=== PATIENT | male | born 1970 | race Caucasian/White ===

== ENCOUNTER 2022-07-23 14:23 | Outpatient (CLI) | payer BC, SELFPAY ==
[2022-07-23 22:21] LABS: Albumin* 4.1 g/dL (3.3-5.0)
[2022-07-23 22:22] LABS: Chloride* 105 mmol/L (96-114); Potassium* 4.1 mmol/L (3.6-5.1); Sodium* 138 mmol/L (135-149)
[2022-07-23 22:24] LABS: Aspartate Amino Transferase* 41 U/L (12-35); Bilirubin Total* 0.9 mg/dL (0.1-1.5); Carbon Dioxide* 26 mmol/L (20-32); Cholesterol* 167 mg/dL (90-199); Creatinine* 0.9 mg/dL (0.5-1.5); Estimated Glomerular Filt Rate 104 ml/min; Total Protein* 6.6 g/dL (6.0-8.3)
[2022-07-23 22:25] LABS: Alanine Aminotransferase* 66 U/L (4-50); Alkaline Phosphatase* 59 U/L (40-150); Blood Urea Nitrogen* 12 mg/dL (7-30); Calcium* 9.2 mg/dL (8.4-10.6); Glucose* 181 mg/dL (60-115); HDL Cholesterol* 41 mg/dL (>=40); LDL Cholesterol Calculated 78 mg/dL (<100); Triglycerides* 240 mg/dL (40-149)
== END 2022-07-23 14:24 | disposition home or self-care (01) ==
PROVIDERS: PCP Physician Assistant Medical; Visit Provider Physician Assistant Medical
DX: E11.9 Type 2 diabetes mellitus without complications (principal); R79.89 Other specified abnormal findings of blood chemistry; E78.1 Pure hyperglyceridemia
CPT/HCPCS: 80053; 80061

== ENCOUNTER 2023-07-07 08:33 | Outpatient (CLI) | payer BC, SELFPAY | END 2023-07-07 08:34 | disposition home or self-care (01) | LOC: NFLDREF 07-13 18:41 | PROVIDERS: PCP Physician Assistant Medical; Referring Provider Physician Assistant Medical; Visit Provider Physician Assistant Medical | DX: E11.9 Type 2 diabetes mellitus without complications (principal); E78.1 Pure hyperglyceridemia; R79.89 Other specified abnormal findings of blood chemistry | CPT/HCPCS: 80053; 80061 ==

== ENCOUNTER 2024-02-22 07:12 | Outpatient (CLI) | payer BC, SELFPAY | END 2024-02-22 07:13 | disposition home or self-care (01) | LOC: NFLDREF 18:38 | PROVIDERS: PCP Physician Assistant Medical; Referring Provider Physician Assistant Medical; Visit Provider Physician Assistant Medical | DX: E11.9 Type 2 diabetes mellitus without complications (principal); R79.89 Other specified abnormal findings of blood chemistry; E78.1 Pure hyperglyceridemia; I10 Essential (primary) hypertension | CPT/HCPCS: 80076 ==

== ENCOUNTER 2024-06-22 11:35 | Outpatient (CLI) | payer BC, SELFPAY | END 2024-06-22 11:36 | disposition home or self-care (01) | LOC: NFLDREF 06-23 23:10 | PROVIDERS: PCP Physician Assistant Medical; Referring Provider Physician Assistant Medical; Visit Provider Physician Assistant Medical | DX: E11.9 Type 2 diabetes mellitus without complications (principal); R79.89 Other specified abnormal findings of blood chemistry; E78.1 Pure hyperglyceridemia | CPT/HCPCS: 80053; 80061; 82043; 82570 ==

== ENCOUNTER 2025-06-14 13:11 | Outpatient (CLI) | payer BC, SELFPAY | END 2025-06-14 13:12 | disposition home or self-care (01) | LOC: FRMREF 13:12 | PROVIDERS: PCP Family Medicine; Visit Provider Family Medicine | DX: Z00.00 Encounter for general adult medical examination without abnormal findings (principal); E11.9 Type 2 diabetes mellitus without complications; Z13.6 Encounter for screening for cardiovascular disorders; Z12.5 Encounter for screening for malignant neoplasm of prostate | CPT/HCPCS: 80053; 80061; 82043; 82570; G0103 ==